=== PATIENT | female | born 1990 | race Caucasian/White ===

== ENCOUNTER 2024-05-25 13:31 | Emergency (ER) | payer SELFPAY ==
[2024-05-25] VITALS (14 sets, daily range): BP systolic 121–175; BP diastolic 76–116; PULSE 61–99; RESP 13–24; TEMP 36.3; O2SAT 95–100
--- NOTE | ~2024-05-25 | XR_ITS ---
EXAMINATION: XR chest 1V portable DATE: 05/25/2024 13:57 INDICATION: Right chest wall pain. Shortness of breath. TECHNIQUE: A single frontal view of the chest was obtained. COMPARISON: None. FINDINGS: There are airspace opacities at left lung base. No pleural effusion or pneumothorax. The he art size is normal. IMPRESSION: 1. Airspace opacities at left lung base, consistent with atelectasis versus pneumonia. Reviewed, dictated and finalized at location A. IMPRESSION: 1. Airspace opacities at left lung base, consistent with atelectasis versus pne umonia.
--- NOTE | 2024-05-25 13:37 | ED.FEMALEGU ---
HPI - Female Genitourinary General Chief complaint: Urogenital-Female Stated complaint: right abdominal pain Source: patient Mode of arrival: ambulatory Limitations: no limitations Course Vital Signs Vital signs: Vital Signs Temperature 36.3 C L 05/25/24 13:31 Pulse Rate 99 05/25/24 13:31 Respiratory Rate 24 H 05/25/24 13:31 Blood Pressure 175/116 H 05/25/24 13:31 Pulse Oximetry 97 05/25/24 13:31 Oxygen Delivery Room Air 05/25/24 13:31 Temperature 36.3 C L 05/25/24 13:31 Pulse Rate 99 05/25/24 13:31 Respiratory Rate 24 H 05/25/24 13:31 Blood Pressure 175/116 H 05/25/24 13:31 Pulse Oximetry 97 05/25/24 13:31 Oxygen Delivery Room Air 05/25/24 13:31 Discharge Plan Discharge Follow-up/Referrals: UNKNOWN,DOCTOR [Primary Care Provider] -
--- NOTE | 2024-05-25 13:43 | ED.CHESTPAIN ---
HPI - Chest Pain General Chief Complaint: Urogenital-Female Stated Complaint: right abdominal pain Source: patient Mode of arrival: ambulatory Limitations: no limitations History of Present Illness HPI narrative: 33-year-old female with a history of vaping, cholecystectomy, kidney stone presents to the ED with -- right flank pain which started this morning and resolved spontaneously. No dysuria or hematuria. -- Right lower chest wall pain which is made worse by coughing and deep breathing which started 30 minutes prior to coming to the ED. no fever or chills. No cough or sputum production. MD complaint: chest pain Onset (ago): minute(s) ( 30 minutes ago) Timing of current episode: constant Prior episodes: No Onset: during rest Pain location: right chest Pain radiation: none Severity: severe Quality: sharp Relieving factors: remaining still Exacerbating factors: inspiration Treatment prior to arrival: none Risk Factors Coronary artery disease risk factors: smoking history Thoracic aortic dissection risk factors: none Related Data On Oral Contraceptives: No Allergies Allergy/AdvReac Type Severity Reaction Status Date / Time amoxicillin Allergy Unknown Verified 05/25/24 13:45 Review of Systems Review of Systems: All systems reviewed & are unremarkable except as noted in HPI and below Constitutional: Constitutional: Reports as per HPI and Reports no additional constitutional complaints Eyes: Eyes: Reports as per HPI and Reports no additional eye complaints ENT: Reports system reviewed and no additional complaints, except as documented and Reports as per HPI Cardiovascular: Cardiovascular: Reports as per HPI and Reports no additional cardiovascular complaints Respiratory: Respiratory: Reports as per HPI and Reports no additional respiratory complaints Comments: right-sided pleuritic chest pain Gastrointestinal: Gastrointestinal: Reports as per HPI and Reports no additional gastrointestinal complaints Comments: had right flank pain at 5:30 a.m. which resolved spontaneously. Genitourinary: Genitourinary: Reports no additional female genitourinary complaints Musculoskeletal: Musculoskeletal: Reports no additional musculoskeletal complaints and Reports as per HPI Integumentary/Breasts: Skin/Breast: Reports system reviewed and no additional complaints, except as docu and Reports as per HPI Neurologic: Reports system reviewed and no additional complaints, except as documented and Reports as per HPI Psychiatric: Psychiatric: Reports no additional psychiatric complaints and Reports as per HPI Endocrine: Endocrine: Reports no additional endocrine complaints and Reports as per HPI Hematologic/Lymphatic: Hematologic/Lymphatic: Reports no additional hematologic/lymphatic complaints and Reports as per HPI Allergic/Immunologic: Allergic/Immunologic: Reports no additional allergic/immunologic complaints and Reports as per HPI [facility] Past Medical History Medical History (Updated 05/25/24 @ 15:45 by Henry Nagel MD) Kidney stones Surgical History Surgical History (Updated 05/25/24 @ 14:04 by Henry Nagel MD) S/P cholecystectomy Social History Social History (Updated 05/25/24 @ 14:04 by Henry Nagel MD) Social History: vaping Exam Narrative: afebrile. Blood pressure 149/91. Respiratory rate of 24. Oxygen saturation of 97% on room air. Patient is hyperventilating Const: General: ill appearing Orientation/consciousness: patient oriented x3 HENMT: Head: normal to inspection Ears: external ears normal Face/Nose/Sinus: Normal external nose present Face and sinus: normal facial exam Mouth: Yes Normal oral and palatal mucosa present Throat: posterior oropharynx normal Eyes: Conjunctivae: conjunctivae normal Pupils: Equal, round and reactive pupils present EOM: EOMs intact bilaterally Direct Ophthalmoscopy: no photophobia Neck: Neck: normal visual inspection,
[2024-05-25] MEDS: KETOROLAC 30 MG/ML VIAL (*BKC) IV PUSH (13:58)
[2024-05-25 14:02] LABS: Basophils Absolute Auto 0.06 K/mm3 (0.00-0.10); Basophils Percent Auto 0.6 % (0.0-1.0); Eosinophils Absolute Auto 0.09 K/mm3 (0.02-0.50); Eosinophils Percent Auto 0.9 % (1.0-6.0); Hemoglobin 13.7 g/dL (12.0-15.0); Immature Granulocyte Absolute 0.03 K/mm3 (0.00-0.00); Immature Granulocyte Percent A 0.3 % (0.0-0.0); Lymphocytes Absolute Auto 4.11 K/mm3 (1.10-4.50); Lymphocytes Percent Auto 42.8 % (18.0-42.0); Mean Corpuscular HGB Conc 34.3 g/dL (32-36); Mean Corpuscular Volume 93.5 fL (78.0-102.0); Mean Platelet Volume 9.4 fl (9.2-11.8); Monocytes Absolute Auto 0.57 K/mm3 (0.10-0.90); Monocytes Percent Auto 5.9 % (2.0-11.0); Neutrophils Absolute Auto 4.75 K/mm3 (1.70-7.20); Neutrophils Percent Auto 49.5 % (50.0-70.0); Platelet Count Result 302 K/mm3 (150-420); Red Blood Count 4.28 M/mm3 (4.20-5.40); White Blood Count 9.6 K/mm3 (4.8-10.8)
[2024-05-25 14:17] LABS: D Dimer 0.23 mg/L (0.19-0.50); INR 1.1; Partial Thromboplastin Time 30.2 Sec (23.9-30.70); Prothrombin Time 11.7 Seconds (9.50-12.1)
[2024-05-25 14:19] LABS: Base Excess ABG -2.8 mmol/L (0-2); HCO3 ABG 17.2 mmol/L (23-29); Oxygen Content ABG 18.8 %vol (16.0-22.0); Oxygen Saturation ABG 96.5 % (95-97); Oxyhemoglobin 95.9 % (94-100); PO2 ABG 84.5 mmHg (80-90); pH ABG 7.55 (7.35-7.45)
[2024-05-25 14:20] LABS: Lactic Acid Reflex 2.4 mmol/L (0.4-2.0)
[2024-05-25 14:20] LABS: Device ROOM AIR; Modified Allen's Test Pass; Site Drawn RIGHT RADIAL
[2024-05-25 14:21] LABS: PCO2 ABG 20.1 mmHg (35-45)
[2024-05-25 14:23] LABS: Alanine Aminotransferase 102 U/L (14-59); Albumin Level 3.8 g/dL (3.4-5.0); Alkaline Phosphatase 94 U/L (46-116); Anion Gap 14 mmol/L (4-12); Aspartate Amino Transferase 70 U/L (15-37); Bilirubin,Total 0.6 mg/dL (0.00-1.00); Blood Urea Nitrogen 6 mg/dL (7-18); Calcium 9.5 mg/dL (8.5-10.1); Carbon Dioxide 24 mmol/L (21-32); Chloride 102 mmol/L (98-108); Estimated CRCL calculation 111 ml/min; Estimated Glomerular Filt Rate > 60; Glucose 80 mg/dL (70-99); Lipase 42 U/L (16-77); Osmolality Calculated 286 mOsm/kg (285-295); Potassium 3.6 mmol/L (3.5-5.1); Sodium 140 mmol/L (136-145); Total Protein 9.2 g/dL (6.4-8.2)
--- NOTE | 2024-05-25 14:23 | ECG_ITS ---
Test Date: 2024-05-25 14:31:35 Measurements Intervals [place] Rate: 61 P: 51 IN: 159 QRS: -23 QRSD: 94 T: 16 QT: 453 QTc: 459 Interpretive Statements SINUS RHYTHM BORDERLINE LEFT AXIS DEVIATION [QRS AXIS < -20] VOLTAGE CRITERIA FOR LVH [MEETS CRITERIA IN ONE OF: R(aVL), S(V1), R(V5), R(V5/V6)+S(V1)] BORDERLINE ECG No previous ECG available for comparison Electronically Signed On 05-30-2024 07:29:23 CDT by Sohail Hernandez M.D.
[2024-05-25 14:24] LABS: Troponin I < 4.0 ng/L (0.00-60.4)
[2024-05-25 14:42] LABS: Add Urine Microscopic? NO; Appearance Urine Clear (Clear); Bilirubin Urine Negative (Negative); Blood Urine Negative (Negative); Color Urine Light Yellow (Yellow); Glucose Urine UA Negative (Negative); Ketones Urine Trace (Negative); Leukocyte Esterase Ur Negative LEU/UL (Negative); Nitrate Urine Negative (Negative); Protein Urine Negative (Negative); Specific Grav Ur <= 1.005 (1.010-1.020); Urobilinogen Urine 0.2 mg/dL (0.2-1.0)
[2024-05-25 14:43] LABS: Pregnancy On Board Control Positive; Urine Pregnancy Test Negative
[2024-05-25 16:28] LABS: Reflex Lactic Acid Yes or No No Lactic Reflex
== END 2024-05-25 16:03 | disposition home or self-care (01) ==
PROVIDERS: Emergency Provider Internal Medicine Critical Care Medicine
DX: R09.1 Pleurisy (principal)
CPT/HCPCS: 36415; 36600; 71045; 80053; 81003; 81025; 82805; 83605; 83690; 84484; 85018; 85025; 85380; 85610; 85730; 93005; 96374; 99284; J1885